=== PATIENT | female | born 1975 | race American Indian/Alaskan Native ===

== ENCOUNTER 2020-05-20 07:37 | Day surgery (SDC) | payer MEDICARE ==
--- NOTE | 2020-05-18 14:28 | Anesthesia Consultation ---
Anesthesia Consult and Med Hx Date of service: 05/20/20 - Airway Anesthetic Teeth Evaluation: Good ROM Head & Neck: Adequate Mental/Hyoid Distance: Adequate Mallampati Class: Class III Intubation Access Assessment: Probably Good - Pre-Operative Health Status ASA Pre-Surgery Classification: ASA3 Proposed Anesthetic Plan: General - Pulmonary Hx Sleep Apnea: Yes (Recently diagnosed, has not received CPAP yet) - Cardiovascular System Hx Hypertension: Yes (+Cardiac clearance) Hx Cardia Arrhythmia: Yes (SVT. ECHO [id number] EF-55%) - Central Nervous System Hx Psychiatric Problems: Yes - Endocrine Hx Non-Insulin Dependent Diabetes: Yes - Hematic Hx Anemia: Yes - Other Systems Hx Cancer: No
[2020-05-18 14:35] LABS: Hematocrit 39.5 % (30.3-42.9); Hemoglobin 12.6 gm/dl (10.1-14.3); Mean Corpuscular HGB Conc 32 % (30-34); Mean Corpuscular Volume 81 fl (79-97); Platelet Count 290 K/mm3 (140-440); Red Blood Count 4.88 M/mm3 (3.65-5.03)
[2020-05-18 14:57] LABS: Blood Urea Nitrogen 10 mg/dL (7-17); Calcium 9.5 mg/dL (8.4-10.2); Hemolysis Index 0
[2020-05-18 15:07] LABS: BUN/Creatinine Ratio 17
[2020-05-18 15:39] VITALS: BP 120/79
--- NOTE | 2020-05-19 08:22 | History and Physical Report ---
History of Present Illness Date of examination: 05/18/20 Chief complaint: dysfunctional uterine bleeding History of present illness: Pt is a 45 year old -Citizen Of [place] female presents for surgical management of dysfunctional uterine bleeding. Notably, she has a h/o five prior sections. Pt has been instructed to take misoprostol 400 mcg buccally the night prior to the procedure. 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 (x 5 ), D&C Family/Genetic History: none Social history: no significant social history - Obstetrical History : 8 Para: 5 Hx # Term Pregnancies: 5 Number of Pregnancies: 0 Spontaneous Abortions: 1 Induced : 2 Number of Living Children: 3 Medications and Allergies Allergies Allergy/AdvReac Type Severity Reaction Status Date / Time No Known Allergies Allergy Unverified 05/12/20 12:06 Home Medications Medication Instructions Recorded Confirmed Last Taken Type Ferrous Sulfate [Feosol] 325 mg PO QDAY 05/12/20 05/12/20 Unknown History Insulin Aspart (Nf) [Novolog] 30 unit SQ BID 05/12/20 05/12/20 Unknown History Insulin Glargine [Lantus VIAL] 70 units SUB-Q BID 05/12/20 05/12/20 Unknown History Losartan [Cozaar] 25 mg PO QDAY 05/12/20 05/12/20 Unknown History Lovastatin [Altoprev] 20 mg PO HS 05/12/20 05/12/20 Unknown History Metoprolol [Lopressor] 25 mg PO BID 05/12/20 05/12/20 Unknown History Review of Systems All systems: negative - Vital Signs Vital signs: Vital Signs Temp Pulse Resp BP Pulse Ox 98.3 F 84 20 120/79 100 05/18/20 14:10 05/18/20 14:10 05/18/20 14:10 05/18/20 14:10 05/18/20 14:10 Temp Pulse Resp BP Pulse Ox 98.3 F 84 20 120/79 100 05/18/20 14:10 05/18/20 14:10 05/18/20 14:10 05/18/20 14:10 05/18/20 14:10 - Physical Exam Breasts: Positive: deferred Abdomen: Positive: soft (obese ) Extremities: Positive: normal Results Result Diagrams: 05/18/20 14:10 05/18/20 14:10 Abnormal lab results 05/18/20 05/18/20 Range/Units 14:10 14:10 MCH 26 L (28-32) pg RDW 19.0 H (13.2-15.2) % Glucose 331 H (65-100) mg/dL All other labs normal. Assessment and Plan A: Dysfunctional Uterine Bleeding Diabetes Mellitus Hypertension Obesity Supraventricular Tachycardia P: Proceed with hysteroscopy, Myosure endometrial sampling, Novasure endometrial ablation and other indicated procedures
[2020-05-20] MEDS ORDERED: ceFAZolin/Water 2 GM/20 ML 2 GM/20 ML SYRINGE IV NR (08:20)
[2020-05-20] MEDS ORDERED: SODIUM CHLORIDE 0.9% 1000 ML 1,000 ML IV SCH (08:30)
[2020-05-20] MEDS ORDERED: BACTERIOSTATIC SODIUM CHLORIDE 0.9% 30 ML VIAL INFILTRATI ONE (08:57)
[2020-05-20] MEDS ORDERED: fentaNYL 100 MCG/2 ML INJ ONE (09:09)
[2020-05-20] MEDS ORDERED: dexAMETHasone 20 MG/5 ML VIAL ONE (09:09)
[2020-05-20] MEDS ORDERED: propofoL 200 MG/20 ML VIAL IV ONE (09:09)
[2020-05-20] MEDS ORDERED: ONDANSETRON 4 MG/2 ML INJ ONE (09:09)
[2020-05-20] MEDS ORDERED: KETOROLAC 30 MG/1 ML INJ ONE (09:09)
== END 2020-05-20 07:38 | disposition home or self-care (01) ==
LOC: OR 07:37
PROVIDERS: ATTEND Obstetrics & Gynecology
DX: N93.8 Other specified abnormal uterine and vaginal bleeding (principal); Z20.828 Contact with and (suspected) exposure to other viral communicable diseases; Z53.8 Procedure and treatment not carried out for other reasons; I42.9 Cardiomyopathy, unspecified; E78.00 Pure hypercholesterolemia, unspecified; I10 Essential (primary) hypertension; G47.30 Sleep apnea, unspecified; E11.9 Type 2 diabetes mellitus without complications; F32.9 Major depressive disorder, single episode, unspecified; F41.9 Anxiety disorder, unspecified; D64.9 Anemia, unspecified; Z79.899 Other long term (current) drug therapy; Z79.4 Long term (current) use of insulin; Z98.891 History of uterine scar from previous surgery; Z98.890 Other specified postprocedural states; Z86.2 Personal history of diseases of the blood and blood-forming organs and certain disorders involving the immune mechanism
CPT/HCPCS: 36415; 80048; 82962; 84703; 85027; J2704; J7030; U0003; J0690; J1100; J1885; J2405; J3010

== ENCOUNTER 2020-05-27 07:59 | Day surgery (SDC) | payer MEDICARE ==
[2020-05-26 11:12] LABS: Blood Urea Nitrogen 8 mg/dL (7-17); Hemolysis Index 0
[2020-05-26 11:21] LABS: BUN/Creatinine Ratio 16
--- NOTE | 2020-05-26 13:26 | History and Physical Report ---
History of Present Illness Date of examination: 05/18/20 Chief complaint: dysfunctional uterine bleeding History of present illness: Pt is a 45 year old -Citizen Of [place] female who present for surgical management of dysfunctional uterine bleeding. She has a h/o of five prior cesareans. She has been instructed to take misoprostol 400 mcg buccally the night prior to the procedure. 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 (x 5 ), D&C Family/Genetic History: none Social history: no significant social history - Obstetrical History : 8 Para: 5 Hx # Term Pregnancies: 5 Number of Pregnancies: 0 Spontaneous Abortions: 1 Induced : 2 Number of Living Children: 3 Medications and Allergies Allergies Allergy/AdvReac Type Severity Reaction Status Date / Time No Known Allergies Allergy Unverified 05/26/20 09:02 Home Medications Medication Instructions Recorded Confirmed Last Taken Type Ferrous Sulfate [Feosol] 325 mg PO QDAY 05/12/20 05/26/20 05/19/20 History Insulin Aspart (Nf) [Novolog] 30 unit SQ BID 05/12/20 05/26/20 05/19/20 08:00 History Insulin Glargine [Lantus VIAL] 70 units SUB-Q BID 05/12/20 05/26/20 05/19/20 08: 00 History Losartan [Cozaar] 25 mg PO QDAY 05/12/20 05/26/20 05/19/20 History Lovastatin [Altoprev] 20 mg PO HS 05/12/20 05/26/20 05/19/20 History Metoprolol [Lopressor] 25 mg PO BID 05/12/20 05/26/20 05/20/20 07:00 History Active Meds: Active Medications Cefazolin Sodium (Ancef/Sterile Water 2 Gm/20 Ml) 2 gm in 20 mls @ 80 mls/hr IV PREOP NR; Protocol Sodium Chloride (Nacl 0.9% 1000 Ml) 1,000 mls @ 75 mls/hr IV DIRECT ERIC Review of Systems All systems: negative - Physical Exam Breasts: Positive: deferred Abdomen: Positive: soft Extremities: Positive: normal Results Result Diagrams: 05/26/20 10:10 Abnormal lab results 05/26/20 Range/Units 10:10 Potassium 3.4 L (3.6-5.0) mmol/L Creatinine 0.5 L (0.6-1.2) mg/dL Glucose 156 H (65-100) mg/dL All other labs normal. Assessment and Plan A: Dysfunctional Uterine Bleeding Insulin Dependent Diabetes Mellitus Hypertension Supraventricular Tachycardia Obesity P: Proceed with hysteroscopy, Myosure endometrial sampling, Novasure endometrial ablation and other indicated procedures
[~2020-05-27 07:59] MED LIST: SILVER NITRATE APPLICATOR 1 EA TP ONE; SODIUM CHLORIDE 0.9% 1000 ML 1,000 ML IV SCH; ceFAZolin/Water 2 GM/20 ML 2 GM/20 ML SYRINGE IV NR
[2020-05-27] MEDS ORDERED: HYDROmorphone 1 MG/1 ML INJ IV PRN ×2 (08:22)
[2020-05-27] MEDS ORDERED: ONDANSETRON 4 MG/2 ML INJ IV PRN (08:22)
--- NOTE | 2020-05-27 08:22 | Anesthesia Day of Surgery ---
Anesthesia Day of Surgery - Day of Surgery Patient Examined: Yes Patient H&P Reviewed: Yes Patient is NPO: Yes
[2020-05-27] MEDS ORDERED: MIDAZOLAM 2 MG/2 ML INJ IV NR (09:00)
[2020-05-27] MEDS: SODIUM CHLORIDE 0.9% 1000 ML 1,000 ML IV SCH ×2 (09:10→11:12)
[2020-05-27] MEDS ORDERED: NEOSTIGMINE 10MG/10 ML INJ MDV ONE (09:31)
[2020-05-27] MEDS ORDERED: propofoL 200 MG/20 ML VIAL IV ONE (09:31)
[2020-05-27] MEDS ORDERED: ROCURONIUM 50 MG/5 ML INJ IV ONE (09:31)
[2020-05-27] MEDS ORDERED: GLYCOPYRROLATE 0.4 MG/2 ML INJ ONE (09:31)
[2020-05-27] MEDS ORDERED: dexAMETHasone 20 MG/5 ML VIAL ONE (09:31)
[2020-05-27] MEDS ORDERED: PHENYLEPHRINE/NS 1,000 MCG/10 ML SYRINGE (OR USE) IV ONE (09:31)
[2020-05-27] MEDS ORDERED: SUCCINYLCHOLINE CHLORIDE 200 MG/10 ML INJ MDV ONE (09:31)
[2020-05-27] MEDS ORDERED: LIDOCAINE MPF (2%) 20 MG/1 ML VIAL 5 ML ONE (09:31)
[2020-05-27] MEDS ORDERED: ONDANSETRON 4 MG/2 ML INJ ONE (09:31)
[2020-05-27] MEDS ORDERED: fentaNYL 100 MCG/2 ML INJ ONE (09:31)
--- NOTE | 2020-05-27 10:38 | Operative Report ---
Operative Report Operative Report: Date of Procedure: May 27, 2020 Preoperative Diagnosis: 1) Dysfunctional Uterine Bleeding Postoperative Diagnosis: Same Procedure: 1) Hysteroscopy 2) Myosure endometrial sampling 3) Novasure endometrial ablation Surgeon: Dorothy Patel MD Findings: 1) Anteverted uterus that sounded to 12 cm 2) Minimal tissue in endometrial cavity visible on hysteroscopy Anesthesia: GETA EBL: 20 mL Deficit: 230 mL Urine output: 50 mL, clear prior to the procedure Specimen: Endometrial curettings to pathology Complications: None. Counts correct x 2 Disposition: Stable to PACU Indication for Procedure: The patient is a 45 year old who presents for surgical management of dysfunctional uterine bleeding. Operation in detail: After the risks, complications, alternatives and benefits were signed to the patient she gave informed consent for the procedure. She was subsequently taken to the operating room with her IV noted to be running well and placed in the dorsal supine position. SCDs were noted to be in place and functioning. General anesthesia was then induced without difficulty. The patient was then placed in the dorsal lithotomy position and prepped and draped in normal sterile fashion. A timeout was performed. An exam under anesthesia revealed an anteverted uterus. The bladder was then drained with a catheter yielding 50 mL of clear urine. An open sided bivalve speculum was placed into the vagina for adequate visualization of the cervix. A single-tooth tenaculum was placed on the anterior lip of the cervix for traction. The uterus was then gently sounded to 12 cm. The cervix was then serially dilated with Drummond dilators to a #25. The hysteroscope was then introduced into the uterine cavity with findings of a thin endometrium. At this time, the Myosure Lite device was introduced to sample the endometrial cavity performed per protocol. Subsequently all instruments were removed from the uterus atraumatically. At this time, attention was turned to the endometrial ablation. An open sided speculum was then placed into the vagina for adequate visualization of the cervix. The anterior lip of the cervix was then grasped with a tenaculum for traction. The cervical length was then sounded to 5.5 cm and the uterus was then sounded to 12 cm. The cavity length was then noted to be 6.5 cm. The disposable NovaSure device was connected to the RF controller. The NovaSure disposable device was deployed to the locked position and noted to fully extend. The device was then placed in the unlocked position. The disposable device was then inserted into the uterine cavity with traction on the tenaculum. The device was then seated per protocol. After moving the device back 0.5 cm, the device was moved superiorly and inferiorly and rotated clockwise and counterclockwise to 45. The cavity width at this time was noted to be 4.2 cm. The cervical collar was then advanced to the cervix. The cavity assessment was then initiated and passed. The ablation procedure was then initiated and lasted for 54 seconds. The cervical collar was moved away from the cervix, the device was moved to the unlocked position, and the disposable NovaSure device was removed from the uterine cavity. The hysteroscope was reintroduced to visualize the charred endometrial cavity. At this time the single-tooth tenaculum was removed from the cervix. The tenaculum puncture sites were hemostatic with use of pressure and silver nitrate. All instruments were removed from the vagina and the procedure was ended. The patient was replaced into the dorsal supine position and extubated without difficulty. She was subsequently taken to the PACU in stable condition. She tolerated the procedure well. All counts were correct 2.
[2020-05-27] MEDS ORDERED: SODIUM CHLORIDE 0.9% IRRIG SOLN 3000 ML IR ONE (10:46)
[2020-05-27] MEDS ORDERED: SILVER NITRATE APPLICATOR 1 EA TP ONE (10:46)
--- NOTE | 2020-05-27 10:55 | Short Stay Summary ---
Short Stay Documentation Date of service: 05/27/20 - History Social history: no significant social history - Allergies and Medications Current Medications: Allergies No Known Allergies Allergy (Unverified 05/26/20 09:02) Home Medications Medication Instructions Recorded Confirmed Last Taken Type Ferrous Sulfate [Feosol] 325 mg PO QDAY 05/12/20 05/26/20 05/26/20 History Insulin Aspart (Nf) [Novolog] 30 unit SQ BID 05/12/20 05/26/20 05/26/20 History Insulin Glargine [Lantus VIAL] 70 units SUB-Q BID 05/12/20 05/26/20 05/26/20 History Losartan [Cozaar] 25 mg PO QDAY 05/12/20 05/26/20 05/26/20 History Lovastatin [Altoprev] 20 mg PO HS 05/12/20 05/26/20 05/26/20 History Metoprolol [Lopressor] 25 mg PO BID 05/12/20 05/27/20 05/27/20 06:30 History Active Medications Hydromorphone HCl (Dilaudid) 0.25 mg IV Q10MIN PRN PRN Reason: Pain, Moderate (4-6) Stop: 05/27/20 23:00 Hydromorphone HCl (Dilaudid) 0.5 mg IV Q10MIN PRN PRN Reason: Pain , Severe (7-10) Stop: 05/27/20 23:00 Cefazolin Sodium (Ancef/Sterile Water 2 Gm/20 Ml) 2 gm in 20 mls @ 80 mls/hr IV PREOP NR; Protocol Stop: 05/27/20 23:59 Sodium Chloride (Nacl 0.9% 1000 Ml) 1,000 mls @ 75 mls/hr IV DIRECT ERIC Last Admin: 05/27/20 09:10 Dose: 75 mls/hr Documented by: Midazolam HCl (Versed) 2 mg IV PREOP NR Stop: 05/27/20 23:59 Last Admin: 05/27/20 09:15 Dose: 2 mg Documented by: Ondansetron HCl (Zofran) 4 mg IV ONCE PRN PRN Reason: Nausea And Vomiting Stop: 05/27/20 20:00 - Physical exam Breasts: deferred - Brief post op/procedure progress note Date of procedure: 05/27/20 Pre-op diagnosis: Dysfunctional Uterine Bleeding Post-op diagnosis: same Procedure: 1) Hysteroscopy 2) Myosure endometrial sampling 3) Novasure endometrial ablation Anesthesia: GETA Findings: 1) Anteverted uterus that sounded to 12 cm 2) Minimal tissue in endometrial cavity visible on hysteroscopy Surgeon: NATHAN PATEL Estimated blood loss: minimal Pathology: list (endometrial curettage) Specimen disposition: to lab Condition: stable - Hospital course Hospital course: Pt underwent hysteroscopy, Myosure endometrial sampling, Novasure endometrial ablation which she tolerated well. She was observed in the PACU until she met discharge criteria. She will follow up in the office in 2-[address] Patel. - Disposition Condition at discharge: Stable Disposition: - TO HOME OR SELFCARE - Discharge Diagnoses (1) DUB (dysfunctional uterine bleeding) Status: Acute Short Stay Discharge Plan Activity: other (Nothing in vagina, no tuba baths, no intercourse x 4 wks ) Weight Bearing Status: Full Weight Bearing Diet: regular Follow up with: NISHI CEDILLO MD [Primary Care Provider] - 7 Days NATHAN PATEL MD [Staff Physician] - 06/15/20 (Please call to schedule a postop appt ) Prescriptions: Ibuprofen [Motrin] 800 mg PO Q8HR PRN #30 tablet PRN Reason: Pain, Moderate (4-6) oxyCODONE /ACETAMINOPHEN [Percocet 5/325] 1 tab PO Q6HR PRN #20 tablet PRN Reason: Pain
[2020-05-27 13:02] VITALS: BP 148/92
--- NOTE | 2020-05-27 14:33 | Post Anesthesia Evaluation ---
- Post Anesthesia Evaluation Patient Participated: Yes Airway Patent: Yes Stable Respiratory Function: Yes Nausea/Vomiting: No Temp > 96.8F: Yes Pain Manageable: Yes Adequeate Hydration: Yes Anesthesia Complications: No Block Receding Appropriately: Not Applicable Patient on Ventilator: No Other Comments: Anesthesia preop done in [facility] and is another patient number
== END 2020-05-27 13:57 | disposition home or self-care (01) ==
LOC: OR 07:59
PROVIDERS: ATTEND Obstetrics & Gynecology
DX: N93.8 Other specified abnormal uterine and vaginal bleeding (principal); Z20.828 Contact with and (suspected) exposure to other viral communicable diseases; N85.8 Other specified noninflammatory disorders of uterus; I42.9 Cardiomyopathy, unspecified; E78.00 Pure hypercholesterolemia, unspecified; I10 Essential (primary) hypertension; G47.30 Sleep apnea, unspecified; E11.9 Type 2 diabetes mellitus without complications; F32.9 Major depressive disorder, single episode, unspecified; F41.9 Anxiety disorder, unspecified; D64.9 Anemia, unspecified; Z98.890 Other specified postprocedural states; Z79.899 Other long term (current) drug therapy; Z79.4 Long term (current) use of insulin; Z98.891 History of uterine scar from previous surgery
CPT/HCPCS: 36415; 58563; 80048; 82962; 84703; 88305; A4217; C1782; J0330; J0690; J1100; J2250; J2370; J2405; J2704; J2710; J3010; J7030; U0003